=== PATIENT | male | born 1960 | race Caucasian/White ===

== ENCOUNTER 2019-08-15 05:53 | Day surgery (SDC) | payer BC ==
[2019-08-12 10:58] LABS: BASOPHILS # (AUTO) 0.02 x10^3/uL (0-0.1); BASOPHILS % (AUTO) 0 % (0-1); EOSINOPHILS # (AUTO) 0.06 x10^3/uL (0-0.4); EOSINOPHILS % (AUTO) 1 % (1-7); LYMPHOCYTES # (AUTO) 2.22 x10^3/uL (1-3.4); LYMPHOCYTES % (AUTO) 25 % (22-44); MD NO; MEAN CORPUSCULAR HEMOGLOBIN 30.7 pg (27.5-34.5); MEAN CORPUSCULAR HGB CONC 33.5 g/dL (33.2-36.2); MEAN CORPUSCULAR VOLUME 91.6 fL (81-97); MEAN PLATELET VOLUME 8.7 fL (7.4-10.4); MONOCYTES # (AUTO) 0.56 x10^3/uL (0.2-0.8); MONOCYTES % (AUTO) 6 % (2-9); NEUTROPHILS # (AUTO) 5.93 x10^3/uL (1.8-6.8); NEUTROPHILS % (AUTO) 68 % (42-75); PLATELET COUNT 244 x10^3/uL (130-400); RED BLOOD COUNT 5.52 x10^6/uL (4.38-5.82); RED CELL DISTRIBUTION WIDTH 13.2 % (9.4-14.8)
[2019-08-12 11:10] LABS: ANION GAP 10 mmol/L (5-15); CALCIUM 9.6 mg/dL (8.5-10.1); CHLORIDE 108 mmol/L (98-107); CREATININE 1.04 mg/dL (0.7-1.3)
[2019-08-12 11:15] LABS: INTERNATIONAL NORMALIZED RATIO 0.97 (0.93-1.1); PROTHROMBIN TIME 10.3 Seconds (9.6-11.5)
[~2019-08-15] VITALS: Ht 188 cm; Wt 98.0 kg
[~2019-08-15 05:53] MED LIST: AMLO10TA8 PO; HYDR12.517 PO
[2019-08-15] MEDS ORDERED: LACTATED RINGERS 1,000 ML IV SCH ×2 (06:42→09:50)
[2019-08-15] MEDS ORDERED: TRANEXAMIC ACID 100 MG/ML, 10ML ONE ×2 (06:56)
[2019-08-15] MEDS ORDERED: KETOROLAC 60 MG/2 ML ONE (06:56)
[2019-08-15] MEDS ORDERED: ROPIvacaine/PF 0.2%, 20 ML ONE (06:57)
[2019-08-15] MEDS ORDERED: SODIUM CHLORIDE 0.9% 0 ML ONE (06:57)
[2019-08-15] MEDS ORDERED: EPINEPHRINE 1 MG/ML, 1ML ONE (06:57)
[2019-08-15] MEDS ORDERED: BACITRACIN 50,000 UNIT ONE (06:58)
[2019-08-15] MEDS ORDERED: CHLORHEXIDINE 15 ML UDC MM SCH (07:00)
[2019-08-15] MEDS ORDERED: ACETAMINOPHEN 500 MG TABLET PO ONE (07:00)
[2019-08-15] MEDS ORDERED: GABAPENTIN 300 MG CAPSULE PO ONE (07:00)
[2019-08-15] MEDS ORDERED: GABAPENTIN 300 MG CAPSULE ONE (07:02)
[2019-08-15] MEDS ORDERED: ACETAMINOPHEN 500 MG TABLET ONE (07:02)
[2019-08-15] MEDS ORDERED: CEFAZOLIN 1,000 MG ONE ×2 (07:17)
[2019-08-15] MEDS ORDERED: DEXAMETHASONE 4 MG/ML, 1ML ONE ×2 (07:17)
[2019-08-15] MEDS ORDERED: FENTANYL PF 250 MCG/5ML ONE (07:17)
[2019-08-15] MEDS ORDERED: LIDOCAINE-MPF 2% ,5ML ONE (07:17)
[2019-08-15] MEDS ORDERED: MIDAZOLAM 1 MG/ML, 2ML ONE (07:17)
[2019-08-15] MEDS ORDERED: PROPOFOL 10 MG/ML, 20ML ONE (07:17)
[2019-08-15] MEDS ORDERED: ONDANSETRON 2MG/ML, 2ML ONE (07:17)
[2019-08-15] MEDS ORDERED: ROCURONIUM 10MG/ML,5ML ONE (07:17)
[2019-08-15] MEDS ORDERED: GLYCOPYRROLATE 0.2MG/1ML, 5ML ONE (07:34)
[2019-08-15] MEDS ORDERED: NEOSTIGMINE 1 MG/ML, 10ML ONE (07:34)
[2019-08-15] MEDS ORDERED: OXYcodone 5 MG/5 ML ORAL.SOL UDC PO PRN (08:00)
[2019-08-15] MEDS ORDERED: ONDANSETRON 2MG/ML, 2ML IVPush PRN (08:00)
[2019-08-15] MEDS ORDERED: DIPHENHYDRAMINE 50 MG/ML, 1ML IVPush PRN (08:00)
[2019-08-15] MEDS ORDERED: MEPERIDINE/PF 25MG/0.5ML IVPush PRN (08:00)
[2019-08-15] MEDS ORDERED: PROMETHAZINE 25 MG/ML, 1ML IVPush PRN (08:00)
[2019-08-15] MEDS ORDERED: HYDROmorphone 1 MG/ML, 1ML INJ IVPush PRN (08:00)
[2019-08-15] MEDS ORDERED: hydrALAzine 20 MG/ML, 1ML IV PRN (08:00)
[2019-08-15] MEDS ORDERED: ROPIvacaine/PF 0.5%, 30 ML ONE (09:31)
[2019-08-15] MEDS ORDERED: OXYcodone IR 5MG TABLET PO PRN ×2 (10:00)
[2019-08-15] MEDS ORDERED: ONDANSETRON 4 MG TABLET PO PRN (10:00)
[2019-08-15] MEDS ORDERED: DIPHENHYDRAMINE 25 MG CAPSULE PO PRN (10:00)
[2019-08-15] MEDS ORDERED: TRANEXAMIC ACID 1,000 MG in SODIUM CHLORIDE 0.9% 100 ML IVPB ONE (10:00)
[2019-08-15] MEDS ORDERED: SENNA/DOCUSATE TABLET PO PRN (10:00)
[2019-08-15] MEDS ORDERED: OXYcodone 5 MG/5 ML ORAL.SOL UDC ONE (10:16)
[2019-08-15] MEDS ORDERED: FENTANYL PF 100 MCG/2ML ONE (10:16)
[2019-08-15] MEDS: FENTANYL PF 100 MCG/2ML IV PRN ×2 (10:20→10:33)
[2019-08-15 11:00] VITALS: BP 136/62
[2019-08-15] MEDS ORDERED: PREGABALIN 75 MG CAPSULE PO SCH (11:07)
[2019-08-15] MEDS ORDERED: ASPI81TA45 PO (12:23)
[2019-08-15] MEDS ORDERED: ACETAMINOPHEN 500 MG TABLET PO SCH (13:00)
[2019-08-15 13:23] VITALS: BP 122/77
[2019-08-15 14:23] VITALS: BP 147/91
[2019-08-15] MEDS ORDERED: CEFAZOLIN PMX 1GM/50ML 50 ML IVPB SCH (15:00)
[2019-08-16] MEDS ORDERED: DEXAMETHASONE 4 MG/ML, 1ML IVPush SCH (06:00)
[2019-08-16] MEDS ORDERED: ASPIRIN 81 MG TABLET EC PO SCH (06:00)
[2019-08-16] MEDS ORDERED: AMLODIPINE 10 MG TAB PO SCH (09:00)
[2019-08-16] MEDS ORDERED: HYDROCHLOROTHIAZIDE 12.5 MG CAPSULE PO SCH (09:00)
[2019-08-16] MEDS ORDERED: MULTIVITAMINS/MINERALS TABLET PO SCH (09:00)
== END 2019-08-15 14:35 | disposition home or self-care (01) ==
LOC: OUT 05:53 → EDSTATUS 10:30 → 4NE 11:04 → OUT 14:35
PROVIDERS: ATTEND Orthopaedic Surgery Adult Reconstructive Orthopaedic Surgery
DX: M17.11 Unilateral primary osteoarthritis, right knee (principal); M25.761 Osteophyte, right knee; I10 Essential (primary) hypertension; E78.5 Hyperlipidemia, unspecified; Z79.01 Long term (current) use of anticoagulants; Z79.899 Other long term (current) drug therapy; Z96.652 Presence of left artificial knee joint
CPT/HCPCS: 27447; 36415; 64447; 73560; 80048; 85025; 85610; 85730; 87081; 93005; 97162; C1713; C1776; J0690; J1100; J2250; J2405; J2704; J2710; J2795; J3010; J7120; U0001; G0378; J0171; J1885

== ENCOUNTER 2020-11-25 11:49 | Outpatient (CLI) | payer BC ==
[~2020-11-25 11:49] MED LIST changes: +AMLO-211 PO; -AMLO10TA8 PO; +ASPI81TA45 PO
== END 2020-11-25 23:59 | disposition home or self-care (01) ==
LOC: CFH 11:49
PROVIDERS: ATTEND Physical Medicine & Rehabilitation
DX: M51.16 Intervertebral disc disorders with radiculopathy, lumbar region (principal); M48.061 Spinal stenosis, lumbar region without neurogenic claudication; M96.1 Postlaminectomy syndrome, not elsewhere classified; M47.819 Spondylosis without myelopathy or radiculopathy, site unspecified; M79.18 Myalgia, other site; M70.61 Trochanteric bursitis, right hip; M70.62 Trochanteric bursitis, left hip
CPT/HCPCS: 72148